=== PATIENT | male | born 2000 | race Caucasian/White ===

== ENCOUNTER 2022-10-17 13:09 | Emergency (ER) | payer BC, SELFPAY ==
[2022-10-17 14:17] VITALS: BP 109/57; PULSE 104; RESP 18; TEMP 37.8; O2SAT 98; BMI 24.2
--- NOTE | 2022-10-17 14:20 | ED.GENADULT ---
HPI - General Adult General Chief complaint: Upper Respiratory Symptoms Stated complaint: Swollen Tonsils Time Seen by Provider: 10/17/22 17:24 Source: patient and RN notes reviewed Mode of arrival: ambulatory Limitations: no limitations History of Present Illness HPI narrative: 22-year-old male presents for evaluation of a sore throat. He reports his symptoms started about 4 weeks ago. He went to urgent care twice He was initially told it was pharyngitis and was given prednisone Patient impacted urgent care today and had a negative strep and mono test He was given penicillin for tonsillitis He has not yet taking any medication Related Data Previous Rx's Medication Instructions Recorded Magic Mouthwash 10 ml PO TID #240 mL 10/17/22 Diphen/Lido/Antacid 1:1:1 240 mL suspension Allergies Allergy/AdvReac Type Severity Reaction Status Date / Time No Known Allergies Allergy Verified 10/17/22 14:35 Review of Systems Constitutional: Constitutional: Reports as per HPI, Denies fatigue and Denies headache(s) ENT: Denies headache(s) Cardiovascular: Cardiovascular: Denies chest pain and Denies dyspnea Respiratory: Respiratory: Denies cough and Denies dyspnea Gastrointestinal: Gastrointestinal: Denies abdominal pain, Denies constipation and Denies vomiting Genitourinary: Genitourinary: Denies difficulty urinating and Denies dysuria Neurologic: Denies headache(s) and Denies focal weakness Endocrine: Endocrine: Denies fatigue Physical Exam ED Vital Signs: Vital Signs - 24 hr 10/17/22 14:17 Temperature 100.1 F Pulse Rate 104 H Respiratory Rate 18 Blood Pressure 109/57 L Pulse Oximetry 98 Oxygen Delivery Method Room Air BMI result Body Mass Index 24.2 Const General: healthy appearing, comfortable, no acute distress, alert and awake Nutritional Appearance: well nourished Orientation/consciousness: patient oriented x3 HENMT Other: Patient has bilateral tonsillar hypertrophy, no exudates. Airway remains patent. No evidence of abscess Head: Yes normocephalic and Yes atraumatic Eyes Eyelids: Yes eyelids normal Conjunctivae: conjunctivae normal Sclerae: sclerae normal Corneas: corneas normal Pupils: Equal, round and reactive pupils present EOM: EOMs intact bilaterally Neck Neck: Yes full ROM Resp Effort & Inspection: normal respiratory effort, able to speak in complete sentences and not labored Skin General skin exam: no rashes or lesions noted and elasticity normal Neuro General: patient oriented x3 Cranial nerves: Yes Equal, round and reactive pupils present and Yes Bilaterally intact EOM present Cognition (Neuro): normal cognition Extrem Other: Moving all extremities well without any obvious deformities Course Course Course Narrative: RME- 22 year old male presents for evaluation of sore throat and swollen tonsils. He reports it started 4 weeks ago. Reports he tested negative for mono and strep earlier today but was discharged with Penicillin. Patient reports he cannot swallow. On exam his tonsils are edematous with hypertrophy bilaterally but his airway remains patent. No evidence of obvious peritonsillar abscess. He also reports he was on prednisone 2 weeks ago without improvement Medical Decision Making Medical Decision Making MDM Narrative: Patient's labs reviewed and reassuring. He tested positive for mononucleosis. symptoms will be treated conservatively. Differential Diagnosis Differential Diagnoses: The differential diagnosis associated with the presentation includes strep pharyngigits mononucleosis covid 19 pharyngitis Lab Data 10/17/22 14:59 10/17/22 14:59 Labs: Lab Results 10/17/22 Range/Units 14:59 WBC 7.0 (4.8-10.8) X10*3/uL RBC 5.40 (4.60-5.80) X10*6/uL Hgb 15.8 (14.0-18.0) g/dl Hct 46.3 (42.0-52.0) % MCV 85.7 (80.0-98.0) fL MCH 29.3 (27.0-33.0) pg MCHC 34.1 (31.0-36.0) g/dl RDW 11.6 (11.0-16.0) % Plt Count 147 L (160-400) X10*3/uL MPV 9.9 (9.4-12.4) fL Immature Gran % (Auto) 0.3 (0.0-0.4) % Neut % (Auto) 41.1 L (45-73) % Lymph % (Auto) 49.3 H (20-40) % [place] % (Auto) 7.3 (2-11) % Eos % (Auto) 1.3 (0-4) % Baso % (Auto) 0.7 (0-2) % Lymph # (Auto) 3.5 (1.2-4.9) X10*3/uL [place] # (Auto) 0.5 (0.1-1.2) X10*3/uL Eos # (Auto) 0.1 (0.0-0.4) X10*3/uL Baso # (Auto) 0.1 (0.0-0.2) X10*3/uL Abs Immat Gran (auto) 0.02 (0.00-0.03) X10*3/uL Absolute Neuts (auto) 2.9 (2.0-8.3) x10*3/uL Absolute Nucleated RBC 0.000 (0.0-0.012) X10*3/uL Nucleated RBC % (auto) 0.0 (0.0-0.2) /100WBC Smear Tech's Comments VERIFIED Sodium 141 (135-145) mmol/L Potassium 4.0 (3.3-5.1) mmol/L Chloride 104 (96-108) mmol/L Carbon Dioxide 28 (22-29) mmol/L Anion Gap 13 (12-20) BUN 9 (9-16) mg/dL Creatinine 1.09 (0.5-1.4) mg/dL Estim Creat Clear Calc 116.6 Estimated GFR > 60 Random Glucose 92 (60-115) mg/dL Calcium 9.8 (8.4-10.2) mg/dL Total Bilirubin 0.7 (0.0-1.0) mg/dL AST 88 H (5-37) U/L ALT 159 H (0-40) U/L Alkaline Phosphatase 164 H (39-117) U/L Total Protein 7.5 (6.5-8.0) g/dL Albumin 4.0 (3.5-5.0) g/dL Monoscreen Positive A (Negative) Discharge Plan Discharge Clinical Impression: Mononucleosis Patient Disposition: Home, Self-Care Instructions: Mononucleosis (ED) Additional Instructions: You tested positive for mononucleosis Use Motrin/Tylenol for the pain. You may also use magic mouthwash as prescribed You should not play any contact sports for the next 4 weeks Follow-up your primary doctor Prescriptions: New Magic Mouthwash Diphen/Lido/Antacid 1:1:1 240 mL suspension 10 ml PO TID Qty: 240 0RF Rx Instructions: Lidocaine Viscous 2 % 80mL; diphenhydramine 12.5 mg/5 mL 80mL; aluminum-mag hydrox-simeth [id number]/5mL 80mL
--- NOTE | 2022-10-17 14:24 | PC.NURSE ---
PT IS ABLE TO CONTROL HIS SALVIA. SPEAKS IN FULL SENTENCES. TONSILS ARE VERY SWOLLEN.
[2022-10-17 15:06] LABS: Basophils Absolute Auto 0.1 X10*3/uL (0.0-0.2); Basophils Percent Auto 0.7 % (0-2); Eosinophils Absolute Auto 0.1 X10*3/uL (0.0-0.4); Eosinophils Percent Auto 1.3 % (0-4); Hematocrit 46.3 % (42.0-52.0); Hemoglobin 15.8 g/dl (14.0-18.0); Imm Gran Abs Auto 0.02 X10*3/uL (0.00-0.03); Imm Gran Pct Auto 0.3 % (0.0-0.4); Lymphocytes Absolute Auto 3.5 X10*3/uL (1.2-4.9); Lymphocytes Percent Auto 49.3 % (20-40); MANUAL DIFF FLAG SCAN; Mean Corpuscular HGB Conc 34.1 g/dl (31.0-36.0); Mean Corpuscular Hemoglobin 29.3 pg (27.0-33.0); Mean Corpuscular Volume 85.7 fL (80.0-98.0); Mean Platelet Volume 9.9 fL (9.4-12.4); Monocytes Absolute Auto 0.5 X10*3/uL (0.1-1.2); Monocytes Percent Auto 7.3 % (2-11); Neutrophils Absolute Auto 2.9 x10*3/uL (2.0-8.3); Neutrophils Percent Auto 41.1 % (45-73); Platelet Count 147 X10*3/uL (160-400); Red Cell Distribution Width 11.6 % (11.0-16.0); SCAN SMEAR FLAG 1
[2022-10-17 15:24] LABS: SLIDE REVIEW VERIFIED
[2022-10-17 15:32] LABS: Alanine Aminotransferase 159 U/L (0-40); Alkaline Phosphatase 164 U/L (39-117); Anion Gap 13 (12-20); Aspartate Amino Transferase 88 U/L (5-37); Bilirubin Total 0.7 mg/dL (0.0-1.0); Blood Urea Nitrogen 9 mg/dL (9-16); Calcium 9.8 mg/dL (8.4-10.2); Carbon Dioxide 28 mmol/L (22-29); Chloride 104 mmol/L (96-108); Creatinine Clr Calc Pharmacy 116.6; Estimated Glomerular Filt Rate > 60; Glucose Random 92 mg/dL (60-115); Sodium 141 mmol/L (135-145); Total Protein 7.5 g/dL (6.5-8.0)
[2022-10-17 15:40] LABS: Monotest Positive (Negative)
[2022-10-17] MEDS: Ketorolac Tromethamine 30 MG/ML VIAL IM (17:35)
[2022-10-17] MEDS: dexAMETHasone 2 MG TABLET 10 MG PO (17:36)
== END 2022-10-17 17:59 | disposition home or self-care (01) ==
PROVIDERS: Physician Assistant; Emergency Provider Emergency Medicine
DX: B27.90 Infectious mononucleosis, unspecified without complication (principal)
CPT/HCPCS: 36415; 80053; 85025; 86308; 96372; 99283; 99284; J1885; J8540